=== PATIENT | female | born 1935 | race Caucasian/White ===

== ENCOUNTER → 2020-12-30 10:13 | Outpatient (CLI) | payer MEDICARE, BC, SELFPAY ==
[2020-12-30 11:43] LABS: COVID19 -Nasal RAPID Negative (Negative)
== END ==
PROVIDERS: Visit Provider Physician Assistant
DX: Z20.822 Contact with and (suspected) exposure to COVID-19 (principal); Z01.812 Encounter for preprocedural laboratory examination
CPT/HCPCS: 87635; C9803

== ENCOUNTER 2021-01-01 09:23 | Observation (INO) | payer MEDICARE, BC, SELFPAY ==
[2020-12-24 08:08] VITALS: BMI 28.7
[2020-12-31] VITALS (11 sets, daily range): BP systolic 100–155; BP diastolic 46–85; PULSE 59–74; RESP 16–18; TEMP 35.7–36.8; O2SAT 94–100; BMI 28.7
--- NOTE | 2020-12-31 06:00 | DI.RAD.S_ITS ---
PROCEDURE: XR KNEE LT 1TO2V INDICATIONS: left TKA TECHNIQUE: To views of the knee were acquired. COMPARISON: None. FINDINGS: Bones: Patient is status post left total knee arthroplasty with anatomic left knee alignment. No gross hardware loosening or failure is seen. No acute fracture or dislocation. 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 Soft tissues: Expected postsurgical changes are noted in left knee soft tissue. IMPRESSION: Postop changes from left total knee arthroplasty with anatomic left knee alignment. Dictated by: Mitesh Jay M.D. on 12/31/2020 at 11:00 Approved by: Mitesh Jay M.D. on 12/31/2020 at 11:01
[2020-12-31] MEDS: LACTATED RINGERS 1,000 ML 42 ML IV ×2 (07:11→08:42)
[2020-12-31] MEDS: VANCOMYCIN 1,000 MG/200 ML PIGGYBACK 200 MG IV (07:18)
[2020-12-31] MEDS: ACETAMINOPHEN 325 MG TABLET 975 MG PO (07:20)
[2020-12-31] MEDS: CELECOXIB 200 MG CAPSULE PO (07:21)
[2020-12-31] MEDS: PREGABALIN 75 MG CAPSULE PO (07:21)
--- NOTE | 2020-12-31 07:36 | PM.PREOP ---
Pre-operative Note COVID-19 COVID-19 status: Negative Interval Note History & Physical reviewed/Exam performed by Physician: Yes Changes to H&P: No
--- NOTE | 2020-12-31 07:37 | PM.OP.1 ---
Operative Date/Time/Diagnoses Date of procedure: 12/31/20 Time of procedure: 07:55 Pre-op diagnosis: Left knee osteoarthritis Post-op diagnosis: same Procedure & Clinicians Procedure: Left total knee arthroplasty Same procedure as scheduled: Yes Indications: The patient has had progressively worsening left knee pain with radiographic changes consistent with arthritis. Non-operative management has failed and the patient has requested total knee replacement. The risks, benefits and alternatives to surgery were discussed with the patient prior to proceeding. Risks discussed included, but were not limited to, failure to relieve pain, stiffness, infection, nerve damage, deep venous thrombosis, pulmonary embolism, stroke, coma, heart attack, permanent paralysis and , as well as the potential need for eventual revision of the prosthetic. Surgeon: Starr Smith Furniture Decals Inspector: Lori Mario Anesthesia Type: General and Spinal Operative Notes Findings: Severe left knee osteoarthritis, good stability Closure Type: primary Specimen(s): none sent Prosthetic devices, grafts, tissues, transplants, or devices: [facility] 2 size 5 femur, size 3 tibia, + 10 poly, 35 x 7.5 mm poly patella Applied: drain(s) Estimated Blood Loss (mL): 250 Blood products transfused: none Tourniquet time (min): 66 Procedure in detail: The patient was seen in the pre-operative area, where the patient identified the left knee as the operative site and this was marked with my initials. The patient received pre-operative antibiotics, and was taken to the operating room and placed on the operative table in the supine position. After satisfactory anesthesia, a cement truck loader out was performed. The left leg was encircled with a tourniquet about the proximal thigh, and the leg was prepared from the toes to the tourniquet with ChloroPrep in the usual fashion and draped through sterile drapes. The leg was elevated and exsanguinated with Eschmark bandage and the tourniquet inflated to [250] mmHg pressure. The knee was approached through an approximately 18 cm incision centered over the patella and carried into the knee through a medial parapatellar arthrotomy. A portion of the medial and lateral meniscus was resected. Soft tissue was carefully mobilized around the patella the patella was measured with a caliper. Bone was resected from the patella and the patellar height was reconstituted with up an appropriate sized patellar component. A cover was then placed on the patella. A small amount of additional medial and lateral meniscus was resected. The visionare guide fit well to the distal femur. It looked like an appropriate distal femoral cut and the cut was made without difficulty. The rotation was assessed and the appropriate size femoral guide was placed on the distal femur and finishing cuts were made. There was minor injury to the lateral retinaculum, popliteus was intact. There was no evidence of notching. The anterior, posterior and chamfer cuts were then made. The posterior osteophytes and soft tissues were then removed. The posterior capsule was injected with part of a mixture of 60 ml 0.25% Marcaine mixed with 20 ml Exparel for post operative pain control. The remainder of this mixture was injected into the capsule and subcutaneous tissues during cement curing. The tibia was prepared and the visionaire guide fit well to the distal tibia. The rotation was assessed. The patient was placed in extension residual medial and lateral meniscus as well as any residual bone was carefully resected. [No] additional tibia was resected. Hemostasis was achieved especially posteriorly. Additional local was injected into the posterior capsule. The extension gap was assessed and additional releases for gap balancing were performed as necessary. It was checked with the gap business analyst. The femoral component was trial was placed and the notch was finished. Trial tibial and femoral components were then placed and the knee placed through a range of motion. Range of motion was [0-130], with good stability throughout the range. The trials were then removed, and the tibia was finished. The bone was prepared with pulsatile lavage, and dried with a sponge. Cement was applied and the final prosthetics placed. Excess cement was removed during and after cement curing. A brief Betadine soak was performed. After confirming there was no extruded cement posteriorly, the final tibial insert was placed. The knee was copiously irrigated and the tourniquet deflated. Hemostasis was obtained with the Bovie. A drain was placed and brought out superolaterally. The capsule was closed with interrupted Vicryl suture. The subcutaneous layer was closed with barbed sutures, and the skin with a running 3-0 V-Lock suture and Surgical glue. An Aquacel Ag dressing was applied and the patient was taken to recovery having tolerated the procedure well. Complications: none Post-operative Condition: stable Disposition: Acute Care Plan for aftercare: The patient will be maintained on a standard total knee replacement protocol with weight bearing as tolerated. The patient will receive aspirin and sequential compression devices for DVT prophylaxis. The patient will be discharged home when safe for the home environment.
--- NOTE | 2020-12-31 07:57 | SUR.PREOP ---
0845 - Left femoral nerve block started. Monitoring initiated and maintained throughout procedure. 2LNC applied. Medication given by Dr Vegas. 0851 - Timeout performed. 0853 - injection time. 0854 - Block complete. Pt remained stable throughout procedure, no adverse reactions noted.
[2020-12-31] MEDS: CEFAZOLIN 1 GM VIAL 2 GM IV ×2 (08:10→16:34)
[2020-12-31] MEDS: TRANEXAMIC ACID 1,000 MG VIAL 2000 MG INJ ×2 (08:15→09:36)
--- NOTE | 2020-12-31 08:34 | SUR.OPER ---
Supine on padded OR bed. Pillow under head, arms secured on padded armboards <90 degree abduction. Safety belt across torso. Non-operative leg secured with tape over blanket over lower leg. Operative leg secured in DeMayo/Erickson/Nathe positioner. Foam padded brace at thigh of operative leg.
[2020-12-31] MEDS: BUPIVACAINE 0.25% W/ EPI 30 ML VIAL 60 ML INJ (08:39)
[2020-12-31] MEDS: BUPIVACAINE LIPOSOME 266 MG/20 ML VIAL INJ (08:40)
--- NOTE | 2020-12-31 09:58 | PC.NURSE ---
Day shift: Pt not on AC unit at this time.
--- NOTE | 2020-12-31 10:48 | PC.NURSE ---
Day shift: Pt on AC unit from PACU at approx 1050. SHe is A&Ox4. Denies any pain at this time. Tolerating calf SCD's. Denies any nausea. Can wiggle bilat toes but denies any sensation at this time. HR 60. Other VS WNL. RA. Agrees to not get OOB w/o help from staff. Also agrees to let RN know when pain level reaches 4/10. Oriented to room and call light. Bed alarm is on.
[2020-12-31] MEDS: LACTATED RINGERS 1,000 ML 100 ML IV ×2 (11:27→21:06)
[2020-12-31] MEDS: OXYCODONE IR 5 MG TABLET PO (11:45)
[2020-12-31] MEDS: IBUPROFEN 400 MG TABLET PO ×3 (12:05→21:05)
--- NOTE | 2020-12-31 14:45 | PT.IIE ---
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 (12/31/20) Unilateral primary osteoarthritis, left knee (12/31/20) Surgery Performed Operation Date: 12/31/20 07:45 Actual Procedures p Total Knee Arthroplasty(Left) - Starr Smith MD Medical History (Last Updated 12/24/20 @ 09:13 by Josefina Newsome RN) Acquired hypothyroidism Anterior circulation stroke (2020) Asthma Bilateral cataracts Centrilobular emphysema COPD (chronic obstructive pulmonary disease) Depression Former smoker HLD (hyperlipidemia) Idiopathic peripheral neuropathy Macrocytosis without anemia No history of cardiac disorder Osteoarthritis RLS (restless legs syndrome) Situational anxiety Vitamin D deficiency Physical Therapy Inpatient Evaluation/Re-Eval M1 PT/OT-IP Prior Functional Status Start: 12/31/20 16:20 Freq: NEEDED Status: Active Protocol: Document 12/31/20 14:45 AB (Rec: 12/31/20 16:35 AB [id number]) Medical Review Prior Functional Status Communication able to make needs known Mobility and Gait pt stated that she is independent with all mobilities and ambulation without AD Social History Household Members spouse Living Arrangements House Number of Floors (Floors) Two Floors Number of Stairs To Enter/Railing? pt stays on main level of the house 3 steps R rail ascending to enter Home Environment High Toilet,Walk in Shower Home Equipment Four Wheel Walker,Hand Held Shower,Grab Bars In Shower M2 PT-IP Current Condition Start: 12/31/20 16:20 Freq: NEEDED Status: Active Protocol: Document 12/31/20 14:45 AB (Rec: 12/31/20 16:35 AB [id number]) Physical Therapy Current Condition Current Condition Evaluation Date 12/31/20 Treatment Diagnosis s/p L TKA; difficulty in walking Onset Date 12/31/20 Weight Bearing Status Weight Bearing Status Weight Bear as Tolerated Allowed Weight Bearing Amount (enter % LLE WBAT or #) (%) M3 PT-IP Subjective Start: 12/31/20 16:20 Freq: NEEDED Status: Active Protocol: Document 12/31/20 14:45 AB (Rec: 12/31/20 16:35 AB [id number]) Subjective Physical Therapy Visit Type Type Initial Evaluation Visit Start Time 14:45 Visit Stop Time 15:35 Total Visit Minutes 50 Number of NUT AND BOLT ASSEMBLER Visits 0 Physical Therapy Visit Comments Patient Comments pt is agreeable to do PT Therapy Pain Assessment Pain When Pain Assessed During Mobility Pain Present Pain Present Pain Reported Location Left Knee Intensity 2 Scale Used Numeric (0 - 10) Pain Management Techniques Apply Cold,Distraction, Modification of Treatment,Re- positioning,Timing of Activity with Medications M4 PT-IP Mobility and Gait Start: 12/31/20 16:20 Freq: NEEDED Status: Active Protocol: Document 12/31/20 14:45 AB (Rec: 12/31/20 16:35 AB [id number]) PT-Bed Mobility Assessment Supine to Sit Supine to Sit Standby Assistance PT-Transfer Assessment Sit to and From Stand Sit to and from Stand Moderate Assistance,1 Person Assistance,Use of Upper Extremities Equipment Transfer Assistive Device Gait Belt,Front Wheeled Walker Orthotic/Prosthetic Devices or Brace: No Transfers Transfer Destination Bedside Commode Transfer Technique Stand Step Pivot Transfer Ability Level of Assist Moderate Assistance,1 Person Assistance,Use of Upper Extremities Comments Mobility Comments BP supine: 119/57. completed supine to sit SBA. pt was able to sit on EOB SBA. c/o slight lightheadedness. BP checked: 139/64. requested to use the toilet. completed sit to stand from EOB mod and cues for L knee stability and completed step transfer using FWW mod A and cues to bedside commode. complete sit to stand from bedside commode mod A and step transfer to bed using FWW mod A and cues. pt agreed to sit up on chair and ambulated towards the chair using FWW mod A and cues ~ 12 ft. positioned on chair. BP: 130/70. ice pack provided. call light and table placed within reach. informed pt and spouse of safety and FWW use at this time and will re-assess tomorrow if pt will be appropriate for 4WW use. pt does not have FWW at this time and spouse stated that medicare should cover one for pt and is requesting one to be dispensed to pt but pt is disagreeing. informed pt and spouse that PT will assess appropriate AD tomorrow again and if FWW is needed for home use, PT will f/u on pt and spouse if they want to purchase one. both understood and agreed. Gait Assessment Gait Gait Assistance Required: Moderate Assistance Distance (Feet) 12 Able to Maintain Weight Bearing Status Yes During Gait Assistive Devices Assistive Device Gait Belt,Front Wheeled Walker Orthotic/Prosthetic Devices or Brace: No Gait Deviations General Gait Pattern Antalgic,Decreased Stride Length,Decreased Feet Clearance,Step-to Gait Factors Limiting Gait Function Factors Limiting Gait Function Decreased Activity Tolerance, Decreased Strength,Difficulty Following Directions,Limited Range of Motion,Pain,Poor Balance,Poor Safety Awareness Comments Gait Comments presents with unsteady gait and mod A for L knee stability and for quads activation. Stair Climbing Assessment Evaluation Level of Assist On Stairs Contact Guard Assistance PT-Balance Assessment Sitting Balance and Reactions Static Sitting Balance Ability Good Dynamic Sitting Balance Ability Good Standing Balance and Reactions Static Standing Balance Ability Fair Dynamic Standing Balance Ability Fair Device Used FWW M5 PT-IP Objective Assessments Start: 12/31/20 16:20 Freq: NEEDED Status: Active Protocol: Document 12/31/20 14:45 AB (Rec: 12/31/20 16:35 AB [id number]) Orientation Orientation/Cognition Level of Alertness Alert Orientation Name,Age,Place,Situation Safety Awareness Decreased Safety Awareness Gross Range of Motion Lower Extremity ROM Impairments L knee flexion: ~ 70 deg Strength Lower Extremity Strength Assessment Left Impaired Hip 4-/5 Knee 3+/5 Sensation Assessment Sensation Gross Sensation WNL Muscle Tone Muscle Tone WNL Yes M6 PT-IP Treatment Start: 12/31/20 16:20 Freq: NEEDED Status: Active Protocol: Document 12/31/20 14:45 AB (Rec: 12/31/20 16:35 AB [id number]) Physical Therapy Treatment Exercises Exercises Heel Slides Education Education Provided Precautions,Weight Bearing Status,Post-Op Packet,Safety M7 PT-IP Assessment and Plan Start: 12/31/20 16:20 Freq: NEEDED Status: Active Protocol: Document 12/31/20 14:45 AB (Rec: 12/31/20 16:35 AB [email or web address]) PT Summary Assessment and Plan Potential Rehabilitation Potential Good Status of Condition at Evaluation Evolving Summary Impairments Pain,ROM,Strength,Balance, Coordination,Sensation,Tone, Cognition,Bed Mobility, Transfers,Gait,Activity Tolerance Assessment Summary pt s/p L TKA POD 0. pt requiring mod A with mobility and requires assist for L knee stability and quads activation but will likely progress during hospital stay. will assess progress with mobility and ambulation and if appropriate progress to 4WW use. caregiver training and stair climbing training will also be conducted when appropriate. Goals Bed Mobility Goal Independent Transfer Goal Independent,Front Wheeled Walker Gait Goal Independent,Front Wheel Walker Gait Distance 200 Other Goals improve ambulation using 4WW 150 ft SBA up/down 3 steps R rail ascending SBA Days to Meet Goals 5 Frequency of Treatment Frequency Of Treatment Twice a Day Treatment Plan Physical Therapy Treatment Plan Bed Mobility Training,Transfer Training,Gait Training, Therapeutic Exercise,Balance Retraining,Post Op Education, Discharge Planning,Hot or Cold Pack,Neuromuscular Re-ed, Coordination Retraining,Manual Therapy Precautions Other Precautions WBAT LLE Recommendations To Nursing Amount of Assist Needed 1 Person Assist Discharge Recommendations PT Discharge Recommendations Home with Assistance, Outpatient PT Equipment Needed for Home Before FWW if not safe with 4WW Discharge Transportation Needs at Discharge Private Vehicle
[2020-12-31] MEDS: ACETAMINOPHEN 325 MG TABLET 650 MG PO (21:04)
[2020-12-31] MEDS: DOCUSATE 100 MG CAPSULE PO (21:05)
[2020-12-31] MEDS: ASPIRIN EC 81 MG TABLET PO (21:05)
[2021-01-01] MEDS: CEFAZOLIN 1 GM VIAL 2 GM IV (00:37)
[2021-01-01] MEDS: IBUPROFEN 400 MG TABLET PO ×3 (02:26→12:05)
[2021-01-01 04:30] VITALS: BP 144/68; PULSE 75; RESP 16; TEMP 36.5; O2SAT 100
[2021-01-01 07:42] LABS: Hematocrit 29.4 % (36-46); Hemoglobin 10.1 g/dL (12.0-16.0)
--- NOTE | 2021-01-01 07:53 | PM.DS.1 ---
History of Present Illness History of Present Illness Date Patient Seen: 01/01/21 Time Patient Seen: 07:53 Chief complaint: Left knee osteoarthritis Narrative: The patient is complaining of [id number] left knee pain this morning. She is concerned about taking narcotics. She notes that Tylenol and ibuprofen is controlling her pain well if she is just resting in bed. She was up with physical therapy yesterday. She denies any fevers, chills, night sweats. She denies any numbness or tingling in bilateral lower extremities. Overall she is feeling relatively well. Discharge Providers Provider Discharge Date: 01/01/21 Consults: 12/31/20 06:00 Consult to Anesthesiology Routine Comment: Consulting Provider: Anesthesiologist Reason for consultation: Regional block for post operative pain control 12/31/20 10:48 Consult to Discharge Planning Routine Comment: Consult to Physical Therapy Evaluate & Treat Comment: Physician Instructions: postop TKA protocol Consult to Respiratory Therapy Evaluate & Treat Comment: Physician Instructions: Evaluate and treat Discharge provider: Lori Mario PA-C Summary Hospital Course Discharge Diagnosis: Left knee osteoarthritis Hospital Course: Procedure: Left total knee arthroplasty Same procedure as scheduled: Yes Indications: The patient has had progressively worsening left knee pain with radiographic changes consistent with arthritis. Non-operative management has failed and the patient has requested total knee replacement. The risks, benefits and alternatives to surgery were discussed with the patient prior to proceeding. Risks discussed included, but were not limited to, failure to relieve pain, stiffness, infection, nerve damage, deep venous thrombosis, pulmonary embolism, stroke, coma, heart attack, permanent paralysis and , as well as the potential need for eventual revision of the prosthetic. Surgeon: Starr Smith Employee Relations Assistant: Lori Mario Anesthesia Type: General and Spinal Operative Notes Findings: Severe left knee osteoarthritis, good stability Closure Type: primary Specimen(s): none sent Prosthetic devices, grafts, tissues, transplants, or devices: and Nephew [employer] BCS 2 size 5 femur, size 3 tibia, + 10 poly, 35 x 7.5 mm poly patella Applied: drain(s) Estimated Blood Loss (mL): 250 Blood products transfused: none Tourniquet time (min): 66 Status at Discharge Cognitive/behavioral status at discharge: oriented Functional status at discharge: uses cane/walker Overall status at discharge: patient is progressing back to baseline Exam Vital Signs (past 8 hours): - 01/01/21 04:30 Temperature 97.7 F Pulse Rate 75 Respiratory Rate 16 Blood Pressure 144/68 H Pulse Oximetry 100 Oxygen Delivery Method Room Air Oxygen Flow Rate 0 Narrative Exam Narrative: Pleasant 85-year-old female, resting comfortably in bed, no acute distress. Incision is clean, dry, intact. Bilateral lower extremities with normal functions. Sensation is grossly intact to light touch bilaterally in her lower extremities. Both legs are warm and dry. Bilateral calves are soft, nontender palpation Objective Labs Result Diagrams: 01/01/21 07:02 Labs: Laboratory Results - last 24 hr 01/01/21 07:02 Hgb 10.1 L Hct 29.4 L PFSH Medical History Acquired hypothyroidism Anterior circulation stroke (2020) Asthma Bilateral cataracts Centrilobular emphysema COPD (chronic obstructive pulmonary disease) Depression Former smoker HLD (hyperlipidemia) Idiopathic peripheral neuropathy Macrocytosis without anemia No history of cardiac disorder Osteoarthritis RLS (restless legs syndrome) Situational anxiety Vitamin D deficiency Surgical History History of arthroscopy of both knees Hx of adenoidectomy Hx of cholecystectomy Hx of hemorrhoidectomy Hx of tonsillectomy Hx of tubal ligation Social History household members: spouse Smoking Status: Former smoker alcohol intake: never Discharge Assessment & Plan Assessment and Plan Assessment: Patient is progressing as expected status post left total knee arthroplasty Plan of Treatment: Weight-bearing as tolerated with front wheel walker. I use oxy as needed for moderate to severe pain and continue with ibuprofen and Tylenol. Okay to discharge home today when in stable condition and cleared by Physical therapy Discharge Plan Discharge Plan Patient Disposition: Home Discharge orders & Medications Discharge Orders: Discharge (Order); Ordered 01/01/21 Ordered By: Lori Mario Prescriptions: New acetaminophen 500 mg capsule 500 mg PO Q4H MDD Max 6 tabs per day PRN (Reason: Pain) Qty: 90 RF: 0 aspirin 81 mg Tablet,Delayed Release (Dr/Ec) 81 mg PO BID Qty: 90 RF: 0 docusate sodium [DOK] 100 mg Capsule 100 mg PO BID PRN (Reason: constipation) Qty: 20 RF: 0 ibuprofen 400 mg Tablet 400 mg PO Q4HR PRN (Reason: pain) Qty: 90 RF: 0 oxycodone 5 mg Tablet See Rx Instructions .ROUTE .COMPLEX PRN (Reason: Pain, Moderate (4-6)) Qty: 20 RF: 0 Continued clonazepam 0.5 mg Tablet 0.5 mg PO DAILY PRN (Reason: Anxiety) RF: 0 aspirin [Aspirin Low Dose] 81 mg Tablet,Delayed Release (Dr/Ec) 81 mg PO DAILY RF: 0 acetaminophen [Acetaminophen Extra Strength] 500 mg Tablet 500 mg PO BEDTIME PRN (Reason: Pain, sleep) RF: 0 levothyroxine 75 mcg Tablet 75 mcg PO DAILY RF: 0 Follow up/Referrals: Starr Smith MD [Physician] - (2 weeks for postop visit) Diet/Activity/Treatments Diet: Diet as Tolerated and Regular Activity: Weight-bearing as tolerated with front wheeled walker. Cold/Heat Therapy: Use ice as needed for pain Skin/Wound/Dressing Care Report to your healthcare provider any signs of infection, such as:: chills, fever, night sweats, unusual drainage and unusual redness Dressing: Okay to shower with incision covered. Please call the office if dressing becomes soiled or saturated. Okay to remove the Vaughn wrap after 48 hours from surgery Visit Report/Discharge Packet Instructions: DI for Knee Replacement Stand Alone Forms: Surgery Discharge Discharge Data Attending Provider: Starr Smith
[2021-01-01 08:10] VITALS: BP 134/68; PULSE 69; RESP 16; TEMP 36.8; O2SAT 95
[2021-01-01] MEDS: DOCUSATE 100 MG CAPSULE PO (08:41)
[2021-01-01] MEDS: ASPIRIN EC 81 MG TABLET PO (08:41)
[2021-01-01] MEDS: OXYCODONE IR 5 MG TABLET PO ×2 (08:41→12:05)
[2021-01-01] MEDS: LEVOTHYROXINE 75 MCG TABLET PO (08:41)
[2021-01-01] MEDS: ACETAMINOPHEN 325 MG TABLET 650 MG PO (08:41)
--- NOTE | 2021-01-01 10:07 | PT.IPTN ---
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 (01/01/21) Unilateral primary osteoarthritis, left knee (01/01/21) Surgery Performed Operation Date: 12/31/20 07:45 Actual Procedures p Total Knee Arthroplasty(Left) - Starr Smith MD Physical Therapy Treatment Note M2 PT-IP Current Condition Start: 12/31/20 16:20 Freq: NEEDED Status: Discharge Protocol: Document 12/31/20 14:45 AB (Rec: 12/31/20 16:35 AB [id number]) Physical Therapy Current Condition Current Condition Evaluation Date 12/31/20 Treatment Diagnosis s/p L TKA; difficulty in walking Onset Date 12/31/20 Weight Bearing Status Weight Bearing Status Weight Bear as Tolerated Allowed Weight Bearing Amount (enter % LLE WBAT or #) (%) M3 PT-IP Subjective Start: 12/31/20 16:20 Freq: NEEDED Status: Discharge Protocol: Document 01/01/21 09:08 CLB (Rec: 01/01/21 13:43 CLB [id number]) Subjective Physical Therapy Visit Type Type Treatment Note Visit Start Time 09:08 Visit Stop Time 10:07 Total Visit Minutes 59 Notes present for CG training Number of WOMEN DESIGNER Visits 1 Physical Therapy Visit Comments Patient Comments pt is agreeable to do PT Therapy Pain Assessment Pain When Pain Assessed During Mobility Pain Present Pain Present Pain Reported Location Left Knee Intensity 5 Scale Used Numeric (0 - 10) Pain Management Techniques Apply Cold,Modification of Treatment,Re-positioning, Timing of Activity with Medications M4 PT-IP Mobility and Gait Start: 12/31/20 16:20 Freq: NEEDED Status: Discharge Protocol: Document 01/01/21 09:08 CLB (Rec: 01/01/21 13:43 CLB [id number]) PT-Bed Mobility Assessment Supine to Sit Supine to Sit Standby Assistance,1 Person Assistance Sit to Supine Sit to Supine Standby Assistance,1 Person Assistance Scooting Scooting to Edge of Bed Standby Assistance PT-Transfer Assessment Sit to and From Stand Sit to and from Stand Standby Assistance,1 Person Assistance,Use of Upper Extremities Equipment Transfer Assistive Device Gait Belt,Front Wheeled Walker Orthotic/Prosthetic Devices or Brace: No Transfers Transfer Destination Bed,Toilet,Wheelchair Transfer Technique ambulated with FWW Transfer Ability Level of Assist Standby Assistance,1 Person Assistance,Use of Upper Extremities Comments Mobility Comments Pt in bed upon arrival performing ther ex in supine. Pt able to get to EOB SBA, pt stood with 4WW with brakes on and ambulated in jerez w/4WW/ SBA ~100ft. Pt returned to room sitting on EOB for seated rest break SBA. Pt stood with use of FWW and ambulate to BR , pt able to wilver/doff brief SBA and sat SBA with use of wall rail. Pt performed own pericate and stood from toilet SBA with use of wall rail. Pt ambulate to WC in room sitting in . Pt stood from and climbed three steps with right rail and providing CGA-Min A up and down three steps. Pt rode back to room in then transferred from to bed SBA . Pt left in bed with all needs within reach, present and RN informed of pt mobility progress. Gait Assessment Gait Gait Assistance Required: Standby Assistance,1 Person Assist Distance (Feet) 100 Able to Maintain Weight Bearing Status Yes During Gait Assistive Devices Assistive Device 4 Wheeled Walker Orthotic/Prosthetic Devices or Brace: No Gait Deviations General Gait Pattern Antalgic,Decreased Stride Length,Decreased Feet Clearance,Step-to Gait Factors Limiting Gait Function Factors Limiting Gait Function Decreased Activity Tolerance, Decreased Strength,Difficulty Following Directions,Limited Range of Motion,Pain,Poor Balance,Poor Safety Awareness Comments Gait Comments Pt requiring SBA w/4WW with brakes on. Pt has carpet on some of the floors in the home , WOMEN DESIGNER explained to pt and that 4WW use on carpet with brakes on may be difficult to move, and pt agreed that purchasing a FWW would be best for home use at this time. Stair Climbing Assessment Evaluation Level of Assist On Stairs Contact Guard Assistance, Minimal Assistance Devices Stair Climbing Assistive Devices Right Railing Technique/Endurance Stair Climbing Direction Ascend and Descend Stair Climbing Technique Step to Step Number of Steps Climbed 3 Stair Climbing Set # Repetitions (reps) 1 Comments Stair Climbing Comments WOMEN DESIGNER encouraged pt and to have daughter and son in law to assist pt into home. stated they could help . M5 PT-IP Objective Assessments Start: 12/31/20 16:20 Freq: NEEDED Status: Discharge Protocol: Document 12/31/20 14:45 AB (Rec: 12/31/20 16:35 AB [id number]) Orientation Orientation/Cognition Level of Alertness Alert Orientation Name,Age,Place,Situation Safety Awareness Decreased Safety Awareness Gross Range of Motion Lower Extremity ROM Impairments L knee flexion: ~ 70 deg Strength Lower Extremity Strength Assessment Left Impaired Hip 4-/5 Knee 3+/5 Sensation Assessment Sensation Gross Sensation WNL Muscle Tone Muscle Tone WNL Yes M6 PT-IP Treatment Start: 12/31/20 16:20 Freq: NEEDED Status: Discharge Protocol: Document 01/01/21 09:08 CLB (Rec: 01/01/21 13:43 CLB [id number]) Physical Therapy Treatment Exercises Exercises Heel Slides,Straight Leg Raises,Short Arc Quads,Seated Knee Flexion/Extension Education Education Provided Precautions,Weight Bearing Status,Post-Op Packet,Safety M7 PT-IP Assessment and Plan Start: 12/31/20 16:20 Freq: NEEDED Status: Discharge Protocol: Document 01/01/21 09:08 CLB (Rec: 01/01/21 13:43 CLB [id number]) PT Summary Assessment and Plan Potential Rehabilitation Potential Good Status of Condition at Evaluation Evolving Summary Impairments Pain,ROM,Strength,Balance, Coordination,Sensation,Tone, Cognition,Bed Mobility, Transfers,Gait,Activity Tolerance Progress Towards Goals Progressing Toward Goals Assessment Summary Pt improving with all mobility today. Pt able to get in and out of bed SBA, sit-stand SBA from bed, WC and toilet. Pt increased gait distance to ~ 100ft requiring SBA. Pt climbed stairs with assisting her CGA up stairs and Min A with HH down stairs, son in law and daughter will assist pt into home upon d/c. Pt is attentive and is able to assist pt with cues for safety and assist with stair climbing. Pt would benefit from PT upon d/c. Goals Bed Mobility Goal Independent Transfer Goal Independent,Front Wheeled Walker Gait Goal Independent,Front Wheel Walker Gait Distance 200 Other Goals improve ambulation using 4WW 150 ft SBA up/down 3 steps R rail ascending SBA Days to Meet Goals 5 Frequency of Treatment Frequency Of Treatment Twice a Day Treatment Plan Physical Therapy Treatment Plan Bed Mobility Training,Transfer Training,Gait Training, Therapeutic Exercise,Balance Retraining,Post Op Education, Discharge Planning,Hot or Cold Pack,Neuromuscular Re-ed, Coordination Retraining,Manual Therapy Precautions Other Precautions WBAT LLE Recommendations To Nursing Amount of Assist Needed 1 Person Assist Discharge Recommendations PT Discharge Recommendations Home with Assistance,Home Health Equipment Needed for Home Before FWW (pt to purchase) Discharge Transportation Needs at Discharge Private Vehicle
[2021-01-01 11:19] VITALS: O2SAT 95
--- NOTE | 2021-01-01 12:39 | CM.DPNOTE ---
Faxed clinicals for referral to [facility] Pelayo and received fax conf. Kae Keita CM Asst.
--- NOTE | 2021-01-01 12:43 | CM.DANOTE ---
Discharge Planning/Care Management DCP: assessment: Met with pt and her after PT worked with her and with the recommendation for HH. Introduced self and role. DC order has been placed earlier today for home pending PT clearance. Pt is an 85 year old female who admitted yesterday for a scheduled L TKA. Both she and her says that pt is not at a point where she can safely leave the house and get to an OUTPT appt. HH agencies discussed. Area [place]: [facility] is tried and can accept for PT and OT to go out some time next week. Brochure to pt and spouse. Face/Face, HH orders and clinical info is faxed now to [facility] Pt is needing a FWW and plans to buy one on the way home. They decided after talking to PT that this would be better than getting under her insurance. P: home now to [place], accompanied by . Advanced directive, confirm from FAMILY Start: 12/31/20 12:15 Freq: Q24H Status: Active Protocol: Document 12/31/20 12:15 YAD (Rec: 12/31/20 12:15 YAD [id number]) Advance Directive, confirm on record Time 12:15 Person contacted pateint Copy received No Pre-Anesthesia Assessment Start: 12/24/20 08:08 Freq: Status: Active Protocol: Document 12/24/20 08:08 CAB (Rec: 12/24/20 09:37 CAB [id number]) Pre-Anesthesia Assessment Preferred Name Jemma Patient Information Reviewed Via Phone Assessment Assessment Completed With Patient H&P Completed Within 30 Days No Primary Care Provider Chandan Vaughn Seen Specialist in Last 12 Months Yes Specialist Seen Opthamologist/Disability Case Manager, Orthopedist,Other Comment Neurology for blurry vision Primary Language Turkish Tumblers Supervisor Required No Height 167.64 cm Weight 80.739 kg Body Mass Index (BMI) 28.7 Dentition Type Partial- Lower,Full- Upper Barriers to Learning None Hx Anesthesia Reactions Yes: It takes a long time for me to come out of it Hx Family Anesthesia Reaction No Hx Malignant Hyperthermia No Hx Blood Transfusions No Anesthesia Review Requested Yes: Surgeon requested re: Cardiac Additional comment Pt denies any cardiac history alcohol intake never Smoking Status Former smoker Tobacco type cigarettes how long ago did patient quit smoking Quit 2012 Substance Use Type does not use Pain Present Pain Reported Musculoskeletal Symptoms Abnormal Gait,Back Pain, Difficulty Walking,Joint Pain, Numbness History of Falling (Recent or History of No ) Patient is completely paralyzed or No completely immobile Mental Status Oriented to own ability Is patient on oxygen? No Does patient have ALVARADO/SOB Yes: r/t COPD, Asthma, ALVARADO Hx Sleep Apnea No Currently Taking a Beta Diane No Can You Climb a Flight of Stairs Without No SOB Hx Chest Pain No Hx SOB Yes: r/t COPD, Asthma, ALVARADO Hx Syncope or Dizziness No Anti-Coagulant Therapy No Has a Forest Fire Prevention Specialist No Cardiac Testing Yes: Echo @ [facility] Hx Pacemaker/ICD No Pacemaker Rep Required? No Diet Type At Home Regular dysphagia No Bladder Pattern Urgency Urinary Catheter Present No Hx Urinary Self Catheterization No Diabetes No Patient No Lactating No Hx Drug Resistant Organism No Presence of External or Internal Medical No Devices Have you had any close contact with No someone diagnosed with COVID-19? Marital Status Lives With spouse Prior Living Arrangements House Number of Floors (Floors) Two Floors Support System Spouse Does the Patient Have Assistance After Yes Surgery Patient Discharge Plan Description Return Home Comment Pt advised overnight length of stay per surgeon Feels Safe in Current Environment Yes Been Physically Hurt or Threatened By a No Person in Current Environment Do you have thoughts of harming yourself None or others? Are you currently considering suicide? No Do you have a plan to hurt yourself or No Plan others? Do You Have Any Spiritual Beliefs That No May Affect Your HC Choices? Do You Have Any Cultural Practices That No May Affect Your HC Choices? Comment Church Who Can We Speak to About Patient's Care Family, friends Identifying Code for Release of Patient Declines to issue Information Health Care Proxy/Next of Kin Paul () Health Care Proxy Emergency Contact Name Paul () Emergency Contact Advance Directives? No Power of Operations Intern No PAC Instructions Do not shave/clip surgical site,Durable medical equipment ,Medications to take/avoid, Nasal antibiotic,No ETOH/ petroleum product on skin DOS, NPO,Post-op transportation,Pre -surgical wash,Sturdy shoes/ comfortable clothes,Do not bring valuables and remove jewelry
--- NOTE | 2021-01-01 12:46 | PC.NURSE ---
Day shift: Paperwork signed and all questions answered. BONY and Aquacel remain CDI. Pain has been well controlled per MAR. Pt stated that she doesn't like the way the oxycodone makes her feel and PA is aware. VS WNL. RA 97%. Using I.S. as directed. SPouse has been in room for the d/c teaching and PT/OT instructions as well. Home Health set up by CM today. Pt has MD scripts and all personal belongings. Pt in room eatinglunch w/ no c/o nausea. Will d/c home in the next 20 minutes or so.
== END 2021-01-01 13:10 | disposition home or self-care (01) ==
LOC: OR 09:44 → AC 09:44
PROVIDERS: Admitting Provider Orthopaedic Surgery; Referring Provider Orthopaedic Surgery; Visit Provider Orthopaedic Surgery
PROC: 0SRD0JZ Replacement of Left Knee Joint with Synthetic Substitute, Open Approach (ICD-10-PCS; CPT 27447; principal; 2020-12-31 07:45)
DX: M17.12 Unilateral primary osteoarthritis, left knee (principal); J44.9 Chronic obstructive pulmonary disease, unspecified; E03.9 Hypothyroidism, unspecified
CPT/HCPCS: 27447; 36415; 73560; 85014; 85018; 97110; 97116; 97162; 97530; C1776; G0378; C9290; J0171; J0690; J2250; J2704; J3010